=== PATIENT | female | born 1970 | race African-American/Black ===

== ENCOUNTER 2018-02-18 10:27 | Outpatient (CLI) | payer SELFPAY ==
--- NOTE | 2018-02-18 12:55 | HP ---
DATE OF SERVICE: 02/18/2018 HISTORY OF PRESENT ILLNESS: Ms. Lyssa Bustamante is a very pleasant 47-year- old who [facility] for evaluation of left lower extremity lymphedema. The patient was referred to the [facility] by Dr. Enriqueta Jameson. The patient states that she has had swelling of her lower extremities for years. She states that she developed an infectious process of her left lower extremity for the first time, however, at the end of 10/2017 after [place]. The patient states she was admitted to [facility] for left lower extremity cellulitis. She states that she remained in the hospital for approximately 1 week. The patient states she was discharged in November of this year. The patient states that she has been treating the edema of her lower extremities with wraps which are secured with Velcro. The patient states she has utilized compression garments in the past. She states that the compression garments were difficult to use because of the extent of her lower extremity edema. PAST MEDICAL HISTORY: 1. Hypothyroidism. 2. Hypertension. 3. Crohn's disease. PAST SURGICAL HISTORY: 1. x3. 2. Bilateral tubal ligation. 3. Laparoscopic supracervical hysterectomy with left salpingo-oophorectomy. 4. Right oophorectomy and right hemicolectomy in 08/2011. 5. Diverting ileostomy. 6. Ileostomy reversal with repair of parastomal hernia and ventral incisional hernia x2. MEDICATIONS: 1. HCTZ. 2. Levothyroxine. 3. Phentermine. ALLERGIES: No known diagnosed allergies. SOCIAL HISTORY: Negative for tobacco use. The patient admits to only the occasional consumption of alcohol. FAMILY HISTORY: Significant for diabetes mellitus. The patient states that her maternal and paternal grandmothers were diagnosed with diabetes mellitus. The patient also states that she has a paternal aunt who was diagnosed with diabetes mellitus. Family history is negative for coronary artery disease. PHYSICAL EXAMINATION: VITAL SIGNS: Temperature 98.1, pulse 96, respirations 19, blood pressure 123/ 84. GENERAL: A 47-year-old female sitting on table in examination room in no acute distress. HEENT: Normocephalic, atraumatic. NECK: No nuchal rigidity. CHEST: Clear to auscultation. CARDIAC: Regular rate and rhythm. ABDOMEN: Soft. EXTREMITIES: No open wounds are present over the right or left lower extremity. No cellulitis of the right or left lower extremity is present. No maceration of the skin of the right or left lower extremity is present. A dorsalis pedis pulse is palpable on the right and on the left. The patient appears to have lipedema of the left lower extremity. Circumferences of the right lower extremity at the ankle, calf, and knee are 33 cm, 42 cm, and 45 cm. Circumferences of the left lower extremity at the ankle, calf, and knee are 41 cm, 42 cm, and 44 cm. Discoloration of the skin of the right and left lower legs is present secondary to hemosiderin deposition. ASSESSMENT AND PLAN: 1. Bilateral lower extremity edema. The patient appears to have lipedema of the left lower extremity. Arrangements will be made for in-home therapy with the use of a pneumatic pump. The patient is to return to the [facility] on . At this time, arrangements will be continued for the initiation of in -home therapy with a pneumatic pump. The patient understands and is in agreement with the preceding treatment plan. Until then, the patient has been asked to continue to utilize her compression wraps secured with Velcro on a daily basis. 2. Hypertension. 3. Hypothyroidism. 4. Crohn's disease. MTDD
== END 2018-02-18 10:28 | disposition home or self-care (01) ==
LOC: WCC 10:27
PROVIDERS: ATTEND Family Medicine
DX: R60.0 Localized edema (principal); I10 Essential (primary) hypertension; E03.9 Hypothyroidism, unspecified; K50.90 Crohn's disease, unspecified, without complications
CPT/HCPCS: 99203; G0463

== ENCOUNTER 2018-03-07 08:57 | Outpatient (CLI) | payer BC, SELFPAY ==
--- NOTE | 2018-03-07 12:04 | PRG ---
DATE OF SERVICE: 03/07/2018 HISTORY: Ms. Lyssa Bustamante is a very pleasant 47-year-old who presents to the [facility] for ev aluation of left lower extremity lymphedema. The patient was referred to the Wound [facility] by Dr. Raiza shaver. The patient previously stated that she has had swelling of her lower extremities for years. She stated that she developed an infectious process of her left lower extremity for the first time; yonis batres, at the end of 10/2017 after [facility]. The patient stated she was admitted to [facility] for left lower extremity cellulitis. She stated that she remained in the hospital for approximatel y 1 week. The patient stated she was discharged in November of this year. The patient stated that e prior to being seen in the [facility] Center, had been treating the edema of her lower extremities with wraps which were secured with Velcro. The patient stated she had utilized compression garments in e past. She stated that the compression garments were difficult to use; however, because of the exte nt of her lower extremity edema. PHYSICAL EXAMINATION: VITAL SIGNS: Temperature 97.8, pulse 86, respirations 18, blood pressure 130/83. EXTREMITIES: No open wounds are present over the right or left lower extremities. No cellulitis of the right or left lower extremity is present. No maceration of the skin of the right or left lower e xtremity is present. A dorsalis pedis pulse is palpable on the right and on the left. The patient a ppears to have lymphedema of the left lower extremity. Circumferences of the right lower extremity a t the ankle, calf and knee are 33 cm, 44 cm, and 43 cm. Circumferences of the left lower extremity a t the ankle, calf and knee are 40 cm, 52 cm and 45 cm. Discoloration of the skin of the right and le ft lower legs is present secondary to hemosiderin deposition. ASSESSMENT AND PLAN: 1. Bilateral lower extremity edema. The patient appears to have lymphedema of the left lower extrem ity. Arrangements will continue for in-home therapy with the use of a pneumatic pump. The patient c ontinues to have edema of her lower extremities despite treatment with elevation and compression wrap s secured with Velcro utilized on a daily basis. 2. Hypertension. 3. Hypothyroidism. 4. Crohn's disease.
== END 2018-03-07 08:58 | disposition home or self-care (01) ==
LOC: WCC 08:57
PROVIDERS: ATTEND Family Medicine
DX: R60.0 Localized edema (principal); I10 Essential (primary) hypertension; E03.9 Hypothyroidism, unspecified; K50.90 Crohn's disease, unspecified, without complications
CPT/HCPCS: 99212; G0463

== ENCOUNTER 2018-09-15 23:54 | Emergency (ER) | payer BC ==
[2018-09-16] MEDS ORDERED: Lidocaine 1% w/Epinephrine 1:100K 20 ML VIAL ONE (00:25)
[2018-09-16] MEDS ORDERED: Ketorolac Tromethamine 30 MG/ML VIAL ONE (00:29)
== END 2018-09-16 01:49 | disposition home or self-care (01) ==
LOC: ERS 23:54
DX: L02.411 Cutaneous abscess of right axilla (principal); H60.91 Unspecified otitis externa, right ear; I10 Essential (primary) hypertension; E03.9 Hypothyroidism, unspecified; Z79.899 Other long term (current) drug therapy
CPT/HCPCS: 10060; J1885; J2001